=== PATIENT | female | born 1960 | race Asian ===

== ENCOUNTER 2017-02-10 07:47 | Emergency (ER) | payer BC ==
[~2017-02-10] VITALS: Ht 157.5 cm; Wt 55.9 kg
[2017-02-10 07:52] VITALS: BP 80/57
== END 2017-02-10 09:20 | disposition home or self-care (01) ==
LOC: ED 07:47
DX: S20.219A Contusion of unspecified front wall of thorax, initial encounter (principal); E78.5 Hyperlipidemia, unspecified; V49.9XXA Car occupant (driver) (passenger) injured in unspecified traffic accident, initial encounter; W22.10XA Striking against or struck by unspecified automobile airbag, initial encounter; Y93.89 Activity, other specified; Y99.8 Other external cause status; Y92.89 Other specified places as the place of occurrence of the external cause
CPT/HCPCS: Q0092